=== PATIENT | female | born 1985 | race African-American/Black ===

== ENCOUNTER 2017-11-17 12:58 | Emergency (ER) | payer SELFPAY | END 2017-11-17 14:12 | disposition home or self-care (01) | LOC: ER 12:58 | DX: M77.8 Other enthesopathies, not elsewhere classified (principal) | CPT/HCPCS: 99283 ==

== ENCOUNTER 2018-01-08 10:03 | Emergency (ER) | payer SELFPAY ==
[2018-01-08] MEDS ORDERED: NEOMY/BACITR/POLYMYXIN OINT PACKET. TP (12:22)
[2018-01-08] MEDS: NEOMY/BACITR/POLYMYXIN OINT PACKET. TP (12:30)
== END 2018-01-08 12:39 | disposition home or self-care (01) ==
LOC: ER 12:39
DX: L03.113 Cellulitis of right upper limb (principal); Z88.1 Allergy status to other antibiotic agents; Z88.5 Allergy status to narcotic agent
CPT/HCPCS: 99283